=== PATIENT | male | born 2005 | race American Indian/Alaskan Native ===

== ENCOUNTER 2025-01-01 02:31 | Emergency (ER) | payer OTHER ==
[~2025-01-01 02:31] MED LIST: ALLERGY RELIE15.8 ML NS; BACTRIM DS TAB1 EACH PO; CRUTCH1 EACH; FLUTICASONE PRO16 GM PO; IBUPROFEN400 MG PO; KEFLEX250 MG PO; PROVENTIL HFA6.7 GM INH; SINGULAIR4 MG PO
[2025-01-01] MEDS ORDERED: TRANEXAMIC ACID 1,000 MG/10 ML AMP ONE (02:35)
[2025-01-01] MEDS ORDERED: DIPHTH,PERTUSS(ACELL),TET VAC 0.5 ML SYRINGE IM ONE (02:45)
[2025-01-01] MEDS ORDERED: CEFAZOLIN SODIUM 2 GM in SODIUM CHLORIDE 0.9% 100 ML IV ONE (02:45)
[2025-01-01] MEDS ORDERED: TRANEXAMIC ACID IN NACL,ISO-OS 1,000 MG/100 ML PIGGYBACK IV ONE (02:45)
[2025-01-01] MEDS ORDERED: LACTATED RINGER'S 1,000 ML IV ONE (02:45)
[2025-01-01] MEDS ORDERED: HYDROmorphone HCL 1 MG/ML SYR IV ONE (03:30)
[2025-01-01 03:36] LABS: ALCOHOL, MEDICAL 26.0 ng/dL (<3); ALT (SGPT) 25.0 U/L (14-59); AST (SGOT) 37.0 U/L (15-37); GLOMERULAR FILTRATION RATE,EST 105.0 mL/min (>60); PROTEIN, TOTAL 6.3 g/dL (6.4-8.2); UREA NITROGEN 8.0 mg/dL (7-18)
[2025-01-01 03:40] VITALS: BP 123/86
[2025-01-01 07:34] LABS: ABO O; ANTIBODY SCREEN NEGATIVE; IS CROSSMATCH COMPATIBLE; RH POSITIVE
== END 2025-01-01 03:40 | disposition short-term general hospital (02) ==
LOC: ED 02:31 → EDBD 02:32 → ED 02:32
PROVIDERS: Internal Medicine
DX: S51.831A Puncture wound without foreign body of right forearm, initial encounter (principal); S31.139A Puncture wound of abdominal wall without foreign body, unspecified quadrant without penetration into peritoneal cavity, initial encounter; X95.9XXA Assault by unspecified firearm discharge, initial encounter
CPT/HCPCS: 36415; 36430; 64415; 70450; 71045; 71260; 72125; 73090; 74177; 80053; 80307; 82550; 83605; 83690; 85025; 86850; 86900; 86901; 86922; 90471; 90715; 94799; 96374; 96375; 99291; 99292; G0390; G0480; J0688; J1171; J7121; P9016; Q9967